=== PATIENT | female | born 1940 | race Caucasian/White ===

== ENCOUNTER 2017-05-15 14:51 | Inpatient (IN) | payer OTHER ==
[~2017-05-15] VITALS: Ht 162.6 cm; Wt 75.4 kg
--- NOTE | ~2017-05-15 | S ---
[facility] [address] [place] [address] SURGICAL PATH RPT PROCEDURE Name: SOPHIE MOSES Room #: 207-P DIS IN M.R.#: [id number] Admission: 05/15/17 Date of : 44 Discharge: 05/19/17 Report #: [id number] Path Case #: [id number] PATHOLOGY REPORT COLLECTION DATE: 05/15/2017 RECEIVED DATE: 05/18/2017 SUBMITTING PHYS: Dr. Tylor Almonte OTHER PHYS: Dr. Lior Galeano SPECIMEN(S) RECEIVED: A.Small bowel B.Gastric C.Polyp at 70 cm D.Cecal polyp E.Distal ascending colon * * * * * * * * * * * * FINAL DIAGNOSIS: A. Small bowel mucosa, rule out celiac disease, endoscopic biopsy: - Mild focal acute and chronic inflammation along with fundic-type metaplasia, compatible with peptic duodenitis. - Negative for findings suggesting celiac sprue. B. Gastric mucosa, gastritis, endoscopic biopsy: - Moderate chronic active gastritis with features of reactive gastropathy. - Negative for intestinal metaplasia or atrophy. - Negative for Helicobacter pylori (please see comment). C. Polyp, at 70 cm, endoscopic biopsy: - Inflamed tubular adenoma. - Negative for high-grade dysplasia or malignancy. D. Polyp, at cecum, endoscopic biopsy: - Inflamed tubular adenoma. - Negative for high-grade dysplasia. E. Mass lesion at "distal ascending colon," endoscopic biopsy: - SUPERFICIAL FRAGMENTS SHOWING A TUBULOVILLOUS ADENOMA WITH FOCAL HIGH-GRADE DYSPLASIA. - No definite invasion identified. COMMENT: B: Helicobacter pylori immunohistochemical stain performed on block B1-negative. An intensive search for Helicobacter pylori-like organisms is negative. Absence of such organisms does not entirely exclude the possibility and may be due to sampling or prior treatment for same. Other possible etiologies may include chemical gastritis, autoimmune gastritis, gastritis associated with inflammatory bowel disease. Please correlate with clinical, endoscopic, and microbiological [address] [address] SURGICAL PATH RPT PROCEDURE Name: SOPHIE MOSES Room #: 207-P DIS IN M.R.#: [id number] Admission: 05/15/17 Date of : 44 Discharge: 05/19/17 Report #: [id number] Path Case #: [id number] studies if clinically indicated. E: Co-review (Part E only): By Dr. Treva Harrison (IUV:mgr; 05/20/2017) PATHOLOGIST: Loretta Govea M.D. REPORT ELECTRONICALLY SIGNED BY: Lorteta Govea M.D. DATE/TIME: 05/20/2017 16:51 * * * * * * * * * * * * GROSS PATHOLOGY: A. Received in formalin labeled "Sophie Moses, small bowel BX rule out celiac disease," are 4 segments of deutsch soft tissue measuring 1.6 x 0.2 x 0.2 cm in aggregate dimensions and ranging from 0.3 to 0.5 cm in maximum dimension. The specimen is submitted entirely in cassette A1. B. Received in formalin labeled " Sophie Moses, BX gastritis," are 5 segments of deutsch soft tissue measuring 1.6 x 0.2 x 0.2 cm in aggregate dimensions and ranging from 0.3 to 0.5 cm in maximum dimension. The specimen is submitted entirely in cassette B1. C. Received in formalin labeled " Sophie Moses, polyp at 70 cm," are 2 segments of deutsch soft tissue measuring 0.7 x 0.2 x 0.2 cm in aggregate dimensions and ranging from 0.3 to 0.4 cm in maximum dimension. The specimen is submitted entirely in cassette C1. D. Received in formalin labeled " Sophie Moses, polyp at cecum," are 3 segments of deutsch soft tissue measuring 1.4 x 0.4 x 0.3 cm in aggregate dimensions and ranging from 0.1 to 0.9 cm in maximum dimension. The specimen is submitted entirely in cassette D1. E. Received in formalin labeled " Sophie Moses, mass lesion at distal ascending colon," are more than 10 segments of deutsch soft tissue measuring 1.6 x 0.4 x 0.3 cm in aggregate dimensions and ranging from less than 0.1 to 0.4 cm in maximum dimension. The specimen is submitted entirely in cassette E1, smaller segments may not survive processing. (LUIZ; 05/19/2017) CLINICAL HISTORY: Iron deficiency, anemia, colon mass, colon polyps INITIAL CPT CODE(S): A; 10754 B; 50081, 24560 C; 86889 D; 55909 E; 33365 Professional services performed by [facility] at [address] [address] SURGICAL PATH RPT PROCEDURE Name: SOPHIE MOSES Room #: 207-P DIS IN M.R.#: [id number] Admission: 05/15/17 Date of : 44 Discharge: 05/19/17 Report #: [id number] Path Case #: [id number] [address], [place] [address] Technical services performed by [facility] at [address] [place] [address], [facility] [address] [address]. [facility] [address] [place] [address] PHONE: [phone] DIRECTOR: Gen Mason M.D. * * * END OF REPORT * * *
--- NOTE | ~2017-05-15 | P ---
[facility] [place] [address] PROCEDURE REPORT Name: SOPHIE MOSES Room #: 207-P [facility] IN M.R.#: [id number] Admission: 05/15/17 Attend Phys: Henry Rico MD Discharge: Date of : 42 Report #: [id number] THIS REPORT FOR: //name// CC: Henry Galeano MD BRIEF HISTORY: The patient is a 76-year-old woman with marked iron deficiency anemia. PREOPERATIVE DIAGNOSIS: Iron deficiency anemia. POSTOPERATIVE DIAGNOSES: 1. Hepatic flexure mass lesion. 2. Multiple colon polyps. MEDICATIONS: Deep sedation with propofol per anesthesia. SPECIMENS: 1. Polyp at 70 cm. 2. Polyp in the cecum. 3. Biopsies of distal ascending colon mass lesion. ESTIMATED BLOOD LOSS: 3 mL. PROCEDURE: Colonoscopy to cecum and terminal ileum with snare polypectomy, biopsy, and injection of Heather ink. FINDINGS: Prior to propofol sedation, the procedure of colonoscopy was discussed with the patient as well as potential risks, benefits, and complications. She indicates she understands and desires to proceed. With the patient in left lateral decubitus position, digital examination was completed, which revealed no abnormalities. Subsequently, the McPhy video colonoscope was introduced into the rectum, advanced under direct vision to the cecum. This was done with minimal difficulty. Cecum was identified by the ileocecal valve and the appendiceal orifice. I was able to visualize the distal segment of terminal ileum, which was inspected and noted to be unremarkable. At that point, the scope was slowly withdrawn and careful circumferential views obtained. There was no evidence of inflammatory disease in the ileum. However, in the cecum, close the appendiceal orifice, there was a flat 5-6 mm polyp was removed by cold snare polypectomy. At that point, the scope was slowly withdrawn and careful circumferential views obtained including retroflexing the scope in the ascending colon. As we withdrew the scope, the prep was noted to be excellent. The mucosa was within normal limits, normal vascular pattern, and normal light reflex. In the distal ascending colon, there was a polypoid mass lesion. Initially, I thought it was a mass lesion, this may actually be a flat [facility] [address] [place] [address] PROCEDURE REPORT Name: SOPHIE MOSES Room #: 207-P [facility] IN ..#: [id number] Admission: 05/15/17 Attend Phys: Henry Rico MD Discharge: Date of : 44 Report #: [id number] polyp draped over a fold. It was felt to be at least 2.5 cm at greatest dimension. Due to the fact it was over fold, I could not see all the lesion behind the fold. In addition, the central part appeared to be quite thick and there may be a mass component rather than flat polyp. It had a smooth and benign appearance. There was no evidence of active bleeding. Multiple biopsies were obtained. Two Heather ink injections were placed in the proximity of the polyp. The scope was further withdrawn and a 4-5 mm polyp was seen at 70 cm, removed by biopsy. Scope was further withdrawn, no additional abnormalities were seen and no bleeding lesions were seen. Scope was withdrawn in the rectum. Upon retroflexion, no abnormalities were seen. Scope was withdrawn. The patient tolerated the procedure well. DISPOSITION: The patient with findings as noted above. I suspect the mass lesion in the distal ascending colon is a neoplastic process and will likely need surgical resection. We will follow up on path and make further recommendations. Also, there is no evidence of bleeding at this point in time, but the patient is on Pradaxa, which may be a factor with regards to her iron deficiency anemia. <ELECTRONICALLY SIGNED> By: Tylor Almonte MD 05/18/17 1742 1355 [id number] Tylor Almonte MD /nt
--- NOTE | ~2017-05-15 | EKG ---
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 : 1940 Requested By: Jeri Allan Order Number: [id number] MD: Lane Rolle Measurements Intervals [place] Rate: 77 P: 124 [place]: 162 QRS: 22 QRSD: 103 T: 251 QT: 382 QTc: 433 Interpretive Statements Atrial fibrillation Multiple premature complexes, vent & supraven Consider left atrial enlargement Repol abnrm suggests ischemia, diffuse leads Minimal ST elevation, lateral leads Baseline wander in lead(s) V6 No previous ECG available for comparison Electronically Signed On 05-15-2017 21:18:[address]le [email or web address] <ELECTRONICALLY SIGNED> By: Lane Rolle MD 05/15/[address] MD /EPI
--- NOTE | ~2017-05-15 | EKG ---
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 : 1940 Requested By: Demetri Muñoz Order Number: [id number] MD: Lane Rolle Measurements Intervals [place] Rate: 61 P: 39 [place]: 149 QRS: 22 QRSD: 101 T: 59 QT: 471 QTc: 475 Interpretive Statements Sinus rhythm Atrial premature complexes Compared to ECG 05/15/2017 15:05:00 Atrial premature complex(es) now present Atrial fibrillation no longer present Early repolarization no longer present Possible ischemia no longer present ST (T wave) deviation no longer present Electronically Signed On 05-19-2017 8:06:[address]le [email or web address] <ELECTRONICALLY SIGNED> By: Lane Rolle MD 05/19/[address] MD /EPI
--- NOTE | ~2017-05-15 | P ---
[facility] [place] [address] PROCEDURE REPORT Name: SOPHIE MOSES Room #: 207-P [facility] IN M.R.#: [id number] Admission: 05/15/17 Attend Phys: Henry Rico MD Discharge: Date of : 42 Report #: [id number] THIS REPORT FOR: //name// CC: Henry Galeano MD BRIEF HISTORY: The patient is a 76-year-old woman who was admitted to [facility] with marked iron deficiency anemia, requiring transfusion. She had a hemoglobin in the 5 range. PREOPERATIVE DIAGNOSIS: Iron deficiency anemia. POSTOPERATIVE DIAGNOSES: 1. Small gastric ulcer, stomach. 2. Diffuse gastritis with scattered erosions. 3. Small hiatus hernia. MEDICATIONS: Deep sedation with propofol per anesthesia. SPECIMEN: Biopsies of gastritis. ESTIMATED BLOOD LOSS: 3 mL. PROCEDURE: EGD with biopsy. FINDINGS: Prior to propofol sedation, procedure of upper endoscopy discussed with the patient as well as potential risks, benefits, and complications. She indicates she understands and desire that we proceed. With the patient in left lateral decubitus position, the T[employer]eps[employer] video endoscope was inserted in the cervical esophagus under direct vision without difficulty. Examination of this organ through its entire length revealed normal esophageal mucosa down the squamocolumnar junction. Squamocolumnar junction was inspected and noted to be unremarkable. No ulcers or erosions were seen. Intermittently, a very small 2 cm sliding type hiatus hernia was seen. The mucosa and hernia was within normal limits. Scope was advanced into the stomach, which was examined on end view as well as retroflexed views. There were multiple erosions in the antrum of the stomach. There was also a small 4-5 mm linear ulcer of the stomach. There was no evidence of active bleeding. No blood was seen within the stomach. The pylorus, duodenal bulb and postbulbar sweep were inspected and noted to be unremarkable. Due to iron deficiency anemia, multiple biopsies were obtained to evaluate for celiac disease in this markedly iron deficient patient. At that point, the scope was slowly withdrawn and careful circumferential views confirmed the above findings. The patient tolerated the procedure well. [address] [address] PROCEDURE REPORT Name: SOPHIE MOSES Room #: 207-P [facility] IN M.R.#: [id number] Admission: 05/15/17 Attend Phys: Henry Rico MD Discharge: Date of : 44 Report #: [id number] DISPOSITION: The patient with marked iron deficiency anemia with findings as noted above. We will follow up on biopsies obtained today. We will make sure she is on PPI. If she has evidence of H. pylori, she may benefit from antibiotic treatment. We will proceed with colonoscopy at this time. If colonoscopy and biopsies were nondiagnostic, she may benefit from an M2 capsule study. The ulcer was fairly small and I am not sure it explains her anemia completely. <ELECTRONICALLY SIGNED> By: Tylor Almonte MD 05/18/17 1742 1321 1612 Tylor Almonte MD /nt
[~2017-05-15 14:51] MED LIST: ASPIR 8181 MG PO; AVANDIA4 MG PO; CIPROFLOXACIN500 M1 PO; GLUCOPHAGE1000 MG PO; NORVASC5 MG PO; PRINIVIL20 MG PO
[2017-05-15 14:53] VITALS: BP 144/105
[2017-05-15] MEDS ORDERED: AMARYL4 MG PO (15:25)
[2017-05-15] MEDS ORDERED: LOPRESSOR50 PO (15:26)
[2017-05-15] MEDS ORDERED: LIPITOR80 MG PO (15:27)
[2017-05-15] MEDS ORDERED: NEURONTIN 300300 M1 PO (15:28)
[2017-05-15] MEDS ORDERED: XARELTO20 MG PO (15:29)
[2017-05-15 15:42] LABS: MCH 16.3 pg (26.0-34.0); MCHC 27.5 g/dL (28.0-37.0); MCV 59.2 fL (80.0-100.0); PLATELET COUNT 175 thou/uL (150-400); RBC 3.17 mil/uL (4.20-5.00); RDW 19.8 % (10.5-14.5)
[2017-05-15 15:51] LABS: ANION GAP 8 mmol/L (7-16); BUN 21 mg/dL (7-18); CALCIUM 9.4 mg/dL (8.5-10.1); CHLORIDE 107 mmol/L (98-107); CO2 26 mmol/L (21-32); GLUCOSE 178 mg/dL (74-106); POTASSIUM 4.4 mmol/L (3.5-5.1); SODIUM 141 mmol/L (136-145)
[2017-05-15 15:54] LABS: MANUAL DIFF YES
[2017-05-15 15:56] LABS: HEMATOCRIT 18.8 % (37.0-47.0); HEMOGLOBIN 5.2 gm/dL (12.0-15.0)
[2017-05-15 15:59] LABS: TROPONIN-I < 0.04 ng/mL (<0.04-0.07)
[2017-05-15 16:23] LABS: WBC 4.9 thou/uL (4.0-11.0)
[2017-05-15 16:26] LABS: ABSOLUTE NEUTROPHILS 2.6 thou/uL (1.4-8.2); BURR CELLS 2+; HYPOCHROMASIA 3+; OVALOCYTES 2+; POLYCHROMASIA 1+; TARGET CELLS 1+; TOTAL CELL COUNT 100
[2017-05-15 16:26] LABS: MCH 15.9 pg (26.0-34.0); MCHC 27.1 g/dL (28.0-37.0); MCV 58.7 fL (80.0-100.0); RBC 3.3 mil/uL (4.20-5.00)
[2017-05-15 16:27] LABS: SCHISTOCYTES 2+
[2017-05-15 16:33] LABS: HEMOGLOBIN 5.2 gm/dL (12.0-15.0)
[2017-05-15 16:34] LABS: HEMATOCRIT 19.3 % (37.0-47.0)
[2017-05-15 17:28] VITALS: BP 155/50
[2017-05-15 17:46] VITALS: BP 137/58
[2017-05-15 18:01] LABS: HEMATOCRIT 18.4 % (37.0-47.0); HEMOGLOBIN 5.2 gm/dL (12.0-15.0)
[2017-05-15 19:42] VITALS: BP 137/51
[2017-05-15 20:11] LABS: % SATURATION 3 % (20-39); IRON 15 ug/dL (50-170); TIBC 504 ug/dL (250-450); UIBC 489 ug/dL
[2017-05-15 21:04] VITALS: BP 113/48; BP 113/56
[2017-05-15 23:59] VITALS: BP 113/44
[2017-05-16 01:51] VITALS: BP 117/50; BP 145/45
[2017-05-16 04:06] VITALS: BP 115/39
[2017-05-16 05:04] LABS: MCH 20.4 pg (26.0-34.0); MCHC 30.8 g/dL (28.0-37.0); RBC 4.08 mil/uL (4.20-5.00); RDW 27.5 % (10.5-14.5); WBC 3.7 thou/uL (4.0-11.0)
[2017-05-16 05:05] LABS: HEMOGLOBIN 8.3 gm/dL (12.0-15.0); MCV 66.2 fL (80.0-100.0)
[2017-05-16 05:12] LABS: CALCIUM 9.2 mg/dL (8.5-10.1); POTASSIUM 3.8 mmol/L (3.5-5.1)
[2017-05-16 07:56] VITALS: BP 120/63
[2017-05-16 11:30] VITALS: BP 112/48
[2017-05-16 15:27] VITALS: BP 121/41
[2017-05-16 19:34] VITALS: BP 119/39
[2017-05-17 03:18] VITALS: BP 136/55
[2017-05-17 04:23] LABS: HEMATOCRIT 27.4 % (37.0-47.0); HEMOGLOBIN 8.2 gm/dL (12.0-15.0); MCH 19.9 pg (26.0-34.0); MCHC 29.8 g/dL (28.0-37.0); MCV 66.6 fL (80.0-100.0); RBC 4.12 mil/uL (4.20-5.00); RDW 26.9 % (10.5-14.5)
[2017-05-17 04:35] LABS: ALBUMIN 3.2 g/dL (3.4-5.0); CREATININE 0.9 mg/dL (0.6-1.0); PHOSPHORUS 3.5 mg/dL (2.5-4.9); POTASSIUM 3.9 mmol/L (3.5-5.1)
[2017-05-17 07:20] VITALS: BP 134/60
[2017-05-17 11:27] VITALS: BP 113/42
[2017-05-17 15:11] VITALS: BP 161/137
[2017-05-17 19:45] VITALS: BP 129/54
[2017-05-18] VITALS (7 sets, daily range): BP systolic 112–139; BP diastolic 49–67
[2017-05-18 03:24] LABS: HEMATOCRIT 27.9 % (37.0-47.0); HEMOGLOBIN 8.3 gm/dL (12.0-15.0); MCH 19.8 pg (26.0-34.0); MCHC 29.7 g/dL (28.0-37.0); MCV 66.8 fL (80.0-100.0); RDW 26.2 % (10.5-14.5); WBC 4.3 thou/uL (4.0-11.0)
[2017-05-18 04:22] LABS: RBC 4.18 mil/uL (4.20-5.00)
[2017-05-18 04:42] LABS: ALBUMIN 3.5 g/dL (3.4-5.0); CALCIUM 9.7 mg/dL (8.5-10.1); CREATININE 0.9 mg/dL (0.6-1.0); PHOSPHORUS 3.8 mg/dL (2.5-4.9); POTASSIUM 4.1 mmol/L (3.5-5.1)
[2017-05-19 03:54] LABS: HEMATOCRIT 25.6 % (37.0-47.0); HEMOGLOBIN 7.9 gm/dL (12.0-15.0); MCH 20.7 pg (26.0-34.0); MCV 66.7 fL (80.0-100.0); PLATELET COUNT 149 thou/uL (150-400); RBC 3.83 mil/uL (4.20-5.00); RDW 27.4 % (10.5-14.5); WBC 4.3 thou/uL (4.0-11.0)
[2017-05-19 04:02] LABS: MANUAL DIFF YES
[2017-05-19 04:07] LABS: CREATININE 0.9 mg/dL (0.6-1.0)
[2017-05-19 04:32] VITALS: BP 124/67
[2017-05-19 06:56] LABS: ABSOLUTE NEUTROPHILS 2.8 thou/uL (1.4-8.2); ANISOCYTOSIS 3+; HYPOCHROMASIA 3+; LARGE PLATELETS FEW; MICROCYTES 2+; TOTAL CELL COUNT 100
[2017-05-19 06:57] LABS: OVALOCYTES 1+; POIKILOCYTOSIS 1+; POLYCHROMASIA 1+
[2017-05-19 08:00] VITALS: BP 128/49
[2017-05-19 12:05] VITALS: BP 135/93
[2017-05-19 15:41] VITALS: BP 135/93
[2017-05-19] MEDS ORDERED: OMEPRAZOLE40 MG PO (15:52)
[2017-05-19] MEDS ORDERED: PANTOPRAZOLE SO40 M1 PO (15:57)
== END 2017-05-19 18:00 | disposition home or self-care (01) | DRG 377 ==
LOC: ER 14:51 → EROBS 16:37 → 2N 16:37 → ENTRNSPT 05-19 16:41 → 2N 05-19 18:00
PROVIDERS: Emergency Medicine; Family Medicine; Hospitalist; Internal Medicine
PROC: 30233N1 Transfusion of Nonautologous Red Blood Cells into Peripheral Vein, Percutaneous Approach (ICD-10-PCS; principal; 2017-05-15)
PROC: 0DB88ZX Excision of Small Intestine, Via Natural or Artificial Opening Endoscopic, Diagnostic (ICD-10-PCS; 2017-05-18)
PROC: 0DB68ZX Excision of Stomach, Via Natural or Artificial Opening Endoscopic, Diagnostic (ICD-10-PCS; 2017-05-18)
PROC: 0DBK8ZX Excision of Ascending Colon, Via Natural or Artificial Opening Endoscopic, Diagnostic (ICD-10-PCS; 2017-05-18)
PROC: 0DBH8ZX Excision of Cecum, Via Natural or Artificial Opening Endoscopic, Diagnostic (ICD-10-PCS; 2017-05-18)
DX: K92.2 Gastrointestinal hemorrhage, unspecified (principal); I50.41 Acute combined systolic (congestive) and diastolic (congestive) heart failure; D68.9 Coagulation defect, unspecified; D62 Acute posthemorrhagic anemia; D12.2 Benign neoplasm of ascending colon; D12.0 Benign neoplasm of cecum; E11.9 Type 2 diabetes mellitus without complications; I11.0 Hypertensive heart disease with heart failure; K25.9 Gastric ulcer, unspecified as acute or chronic, without hemorrhage or perforation; K29.70 Gastritis, unspecified, without bleeding; K44.9 Diaphragmatic hernia without obstruction or gangrene; I48.91 Unspecified atrial fibrillation; E78.5 Hyperlipidemia, unspecified; Z79.01 Long term (current) use of anticoagulants; Z79.84 Long term (current) use of oral hypoglycemic drugs; Z79.82 Long term (current) use of aspirin; Z79.899 Other long term (current) drug therapy
CPT/HCPCS: 10081; 62110; 62900; 70005

== ENCOUNTER 2019-01-26 07:57 | Emergency (ER) | payer OTHER ==
[~2019-01-26] VITALS: Ht 162.6 cm; Wt 72.6 kg
[~2019-01-26 07:57] MED LIST changes: +AMARYL4 MG PO; +LIPITOR80 MG PO; +LOPRESSOR50 PO; +NEURONTIN 300300 M1 PO; +OMEPRAZOLE40 MG PO; +PANTOPRAZOLE SO40 M1 PO; +XARELTO20 MG PO
[2019-01-26 07:58] VITALS: BP 176/66
[2019-01-26 08:46] LABS: ABSOLUTE NEUTROPHILS 3.2 thou/uL (1.4-8.2); BASOPHILS 0.5 % (0.0-2.0); EOSINOPHILS 0.5 % (0.0-3.0); HEMATOCRIT 42.9 % (37.0-47.0); HEMOGLOBIN 14.2 gm/dL (12.0-15.0); LYMPHOCYTES 19.7 % (24.0-44.0); MCH 29.4 pg (26.0-34.0); MCHC 33.1 g/dL (28.0-37.0); MCV 88.9 fL (80.0-100.0); MONOCYTES 4.3 % (1.0-8.0); RBC 4.82 mil/uL (4.20-5.00); RDW 15.6 % (10.5-14.5); WBC 4.3 thou/uL (4.0-11.0)
[2019-01-26 08:52] LABS: CALCIUM 9.4 mg/dL (8.5-10.1); CREATININE 1.2 mg/dL (0.6-1.0); POTASSIUM 4.5 mmol/L (3.5-5.1)
[2019-01-26 08:54] LABS: URINE BILIRUBIN NEGATIVE (Negative); URINE BLOOD 1+ (Negative); URINE CLARITY SL CLOUDY; URINE COLOR YELLOW; URINE GLUCOSE-RANDOM* NEGATIVE (Negative); URINE KETONES NEGATIVE (Negative); URINE NITRITE-REFLEX NEGATIVE (Negative); URINE PROTEIN (DIPSTICK) NEGATIVE (Negative); URINE SPECIFIC GRAVITY 1.015 (1.005-1.035); URINE UROBILINOGEN 0.2 E.U./dl (0.2-1.0)
[2019-01-26 08:55] LABS: URINE LEUKOCYTES-REFLEX 3+ (Negative)
[2019-01-26 08:55] LABS: INR 1.2; PROTIME 12.5 Seconds (9.3-11.4)
[2019-01-26 08:58] LABS: ALBUMIN 3.6 g/dL (3.4-5.0); TOTAL BILIRUBIN 1.1 mg/dL (<0.1-1.0); TOTAL PROTEIN 7.6 g/dL (6.4-8.2)
[2019-01-26 09:08] LABS: LARGE PLATELETS FEW; PLATELET COUNT 117 thou/uL (150-400); PLATELET ESTIMATE NORMAL
[2019-01-26 09:09] LABS: CASTS None Seen /LPF (None Seen); CRYSTALS None Seen /LPF (None Seen); SQUAMOUS >10 Many /LPF (0-3); URINE WBC-REFLEX >25 Many /HPF (0-5)
[2019-01-26 09:10] LABS: BACTERIA-REFLEX >30 Many /HPF (None Seen); URINE RBC 0-2 Rare /HPF (0-2)
[2019-01-26 12:10] VITALS: BP 154/41
[2019-01-26] MEDS ORDERED: NORCO 5-325 TA1 EAC1 PO (12:13)
[2019-01-26] MEDS ORDERED: ROBAXIN500 MG PO (12:13)
--- NOTE | 2019-01-27 07:25 | EKG ---
[place] [address] [facility] 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 : 1940 Requested By: Sd Carlisle Order Number: [id number] MD: Reginald Lucas Measurements Intervals [place] Rate: 56 P: 54 MS: 192 QRS: 30 QRSD: 109 T: 93 QT: 517 QTc: 500 Interpretive Statements Sinus rhythm Nonspecific ST and T wave abnormality Borderline prolonged QT interval Compared to ECG 05/18/2017 16:21:20 Atrial premature complex(es) no longer present Electronically Signed On 01-27-2019 7:24:45 CDT by Reginald Lucas [email or web address] ��������������������������������������������� <ELECTRONICALLY SIGNED> ���������������������������������������� By: Reginald Lucas MD, [facility] ��������������������������������������������� 01/27/19723 3 3 Reginald Lucas MD, [facility] /EPI
== END 2019-01-26 12:10 | disposition home or self-care (01) ==
LOC: ER 07:57 → EROBS 11:40
PROVIDERS: Emergency Medicine
DX: M54.16 Radiculopathy, lumbar region (principal); R26.2 Difficulty in walking, not elsewhere classified; M54.2 Cervicalgia; G89.29 Other chronic pain; I10 Essential (primary) hypertension; E11.9 Type 2 diabetes mellitus without complications

== ENCOUNTER 2019-01-28 13:41 | Emergency (ER) | payer OTHER ==
[~2019-01-28] VITALS: Ht 160 cm; Wt 74.8 kg
[~2019-01-28 13:41] MED LIST changes: +NORCO 5-325 TA1 EAC1 PO; +ROBAXIN500 MG PO
[2019-01-28] MEDS ORDERED: CYCLOBENZAPRINE5 MG PO (14:56)
[2019-01-28] MEDS ORDERED: NORCO 5-325 TA1 EAC1 PO (14:56)
[2019-01-28] MEDS ORDERED: MOBIC7.5 MG PO (14:56)
[2019-01-28 15:05] VITALS: BP 156/64
== END 2019-01-28 15:05 | disposition home or self-care (01) ==
LOC: ER 13:41
DX: M54.42 Lumbago with sciatica, left side (principal); I10 Essential (primary) hypertension; E11.9 Type 2 diabetes mellitus without complications; E78.5 Hyperlipidemia, unspecified; E11.42 Type 2 diabetes mellitus with diabetic polyneuropathy; G89.29 Other chronic pain; M54.2 Cervicalgia